=== PATIENT | male | born 1960 | race Two or more races ===

== ENCOUNTER 2024-03-22 13:50 | Emergency (ER) | payer BC, SELFPAY ==
[2024-03-22 13:57] VITALS: BP 151/81; PULSE 122; RESP 20; TEMP 38.4; O2SAT 98; BMI 31.4
--- NOTE | 2024-03-22 14:00 | PC.NURSE ---
sepsis alert called
--- NOTE | 2024-03-22 14:03 | XR_ITS ---
Examination: PA lateral chest 2 views TECHNIQUE: Upright PA lateral chest 2 views Exam date and time: March 22, 2024 at 1415 hours INDICATIONS: Onset chest pain today. FINDINGS: Normal heart size No pneumonia or pulmonary edema. Mild osteopenia IMPRESSION: No pneumonia or pulmonary edema
--- NOTE | 2024-03-22 14:03 | PD.EDRME ---
Rapid Medical Screening Exam RME Arrival date/time: 03/22/24 13:50 63-year-old male presents emergency department complaints of right knee swelling and fever Chief Complaint: Extremity Injury, Lower Time Seen by Provider: 03/22/24 13:56 Vital signs: Vital Signs Temperature 101.2 F H 03/22/24 13:57 Pulse Rate 122 H 03/22/24 13:57 Respiratory Rate 20 03/22/24 13:57 Blood Pressure 151/81 H 03/22/24 13:57 Pulse Oximetry (%) 98 03/22/24 13:57 Oxygen Delivery Method Room Air 03/22/24 13:57
--- NOTE | 2024-03-22 14:04 | XR_ITS ---
Examination: Duplex scan of the lower extremity, unilateral right Date and time of exam: March 22, 2024 1432 hours INDICATIONS: Right knee pain beginning 2 days ago Technique: Duplex scan of the extremity veins using B-mode/grayscale imaging and Doppler spectral analysis and color flow Attention is directed to internal echogenicity, compression and augmentation involving these veins, color flow assessment, spectral analysis Findings: Major deep venous structures in the extremity demonstrate normal course and caliber. There is no evidence of deep vein thrombosis. Normal color flow and spectral analysis Impression: Negative for DVT..
--- NOTE | 2024-03-22 14:04 | XR_ITS ---
Examination: Knee, right , 3 views Technique: Knee AP, lateral, oblique 3 views Date and time of exam: March 22, 2024 1409 hours INDICATIONS: Right knee pain and swelling today FINDINGS: Mild to moderate tricompartment osteoarthritis Meniscus calcification No fracture Moderate knee effusion IMPRESSION: Mild to moderate tricompartment osteoarthritis No fracture Moderate knee effusion
[2024-03-22 14:28] VITALS: TEMP 38.4
[2024-03-22] MEDS: ACETAMINOPHEN 500 MG TABLET 1000 MG PO (14:28)
[2024-03-22 15:52] LABS: Lactate (Lactic Acid) 1.3 mMol/L (0.4-2.0)
[2024-03-22 16:11] LABS: Basophils % (Auto) 0 % (0-2.5); Eosinophils % (Auto) 0 % (0-10); Hematocrit 46.1 % (41.0-53.0); Hemoglobin 15.6 g/dL (13.5-16.0); Immature Granulocytes % (Auto) 0 % (0-0); Immature Granulocytes Auto 0.03 Thou/mm3 (0.00-0.00); Lymphocytes % (Auto) 16 % (10-50); Mean Corpuscular HGB Conc 33.8 g/dl (31.0-37.0); Mean Corpuscular Hemoglobin 30.5 pg (25.0-35.0); Mean Corpuscular Volume 90 fL (80-100); Monocytes # (Auto) 1.2 Thou/mm3 (0.0-0.8); Monocytes % (Auto) 9 % (0-12); Neutrophils # (Auto) 9.8 Thou/mm3 (1.8-7.7); Neutrophils % (Auto) 75 % (37-80); Nucleated Red Blood Cell % 0 /100 WBC (0); Platelet Count 92 Thou/mm3 (140-440); RDW Standard Deviation 45.5 fL (35.1-43.9); Red Blood Count 5.11 Miln/mm3 (4.50-5.90)
[2024-03-22 16:23] LABS: Alanine Aminotransferase 27 U/L (10-49); Albumin, Serum 4.5 gm/dL (3.4-4.8); Albumin/Globulin Ratio 1.4 (1.2-2.2); Alkaline Phosphatase 86 U/L (46-116); Anion Gap 8 (7-16); Aspartate Amino Transferase 22 U/L (0-34); BUN/Creatinine Ratio 9 Ratio (12-20); Bilirubin,Total 2.6 mg/dL (0.3-1.2); Blood Urea Nitrogen 9 mg/dL (9-23); C-Reactive Protein 11.8 mg/dL (0.0-0.9); Calcium 9.5 mg/dL (8.3-10.6); Calcium (Corrected) 9.5 mg/dL (8.5-10.1); Carbon Dioxide 24.4 mMol/L (20.0-31.0); Chloride 101 mMol/L (98-107); Estimated Creatinine Clearance 77.8 mL/min (>60); Globulin 3.2 gm/dL (2.3-3.5); Glucose 157 mg/dL (74-106); Osmolality,Calculated 268 (275-295); Potassium 3.6 mMol/L (3.4-5.1); Sodium 133 mMol/L (136-145); Total Protein 7.7 gm/dL (5.7-8.2); Uric Acid 5.6 mg/dL (3.7-9.2); eGFR > 60 See Note
[2024-03-22 16:55] LABS: Sed Rate (ESR) 52 mm/hr (0-20)
[2024-03-22 18:05] LABS: Collection Type, Urine Clean Catch
[2024-03-22 18:11] LABS: Bacteria,Urine Rare; Bilirubin,Urine Negative (Negative); Blood,Urine Trace (Negative); Clarity,Urine Clear (Clear/Hazy); Color,Urine Yellow (Lt Yel-Yel); Glucose, Urine Negative (Negative); Ketones,Urine Negative (Negative); Leukocyte Esterase,Urine Negative (Negative); Nitrite,Urine Negative (Negative); Protein,Urine 1+ (Neg - Trace); RBC,Urine 3 /hpf (0-3); Specific Gravity,Urine 1.026 (1.001-1.035); Squamous Epithelial Cell,Urine < 1 /hpf (0-5); Urobilinogen,Urine Negative mg/dL (0.0-1.0); WBC,Urine 3 /hpf (0-5)
[2024-03-22 18:15] VITALS: BP 153/63; PULSE 83; RESP 18; TEMP 36.9; O2SAT 99
[2024-03-22 19:48] VITALS: TEMP 37.1
[2024-03-22 19:51] VITALS: BP 115/81; PULSE 92; RESP 16; TEMP 37.1; O2SAT 95
--- NOTE | 2024-03-22 20:30 | PD.EDLOWEX ---
Lower Extremity Injury RME/HPI General Chief Complaint: Extremity Injury, Lower Stated Complaint: RIGHT KNEE PAIN AND SWELLING Time Seen by Provider: 03/22/24 13:56 Source: patient Arrival date/time: 03/22/24 13:50 Mode of arrival: ambulatory Limitations: no limitations RME / HPI RME / HPI Narrative: 03/22/24 13:50 63-year-old male presents emergency department complaints of right knee swelling and fever Dr. [facility] Main ED Evaluation: 63-year-old male who presents to the emergency department for complaints of right knee pain ongoing off and on about 1.5 months, worsening for the past 2 days. Patient notes he is unable to sleep due to the pain. The pain significantly worsened therefore he decided to come here to be further evaluated. He notes subjective fever and chills. He denies sweating, nausea, vomiting, diarrhea, cough, shortness of breath, chest pain, abdominal pain, UTI symptoms, headache, dizziness or any other medical complaints or associated symptoms. Patient reports similar symptoms about 1 year ago and also 2 months ago however it was not associated with pain and it resolved on its own therefore he did not seek medical attention. He also reports similar symptoms to the left elbow approximately 2 years ago. Past medical history: HTN NIDDM2 Hypercholesterolemia Gout Social history: Nonsmoker Social alcohol use No history of substance use PCP: [facility] Related Data Previous Rx's ?Medication ?Instructions ?Recorded acetaminophen 500 mg capsule 1,000 mg (2 x 500 mg) PO Q6H PRN 03/23/24 fever or pain #30 caps allopurinol 300 mg tablet 300 mg PO QDAY #90 tabs 03/23/24 amoxicillin 875 mg-potassium 1 tab PO BID #14 tabs 03/23/24 clavulanate 125 mg tablet ibuprofen 800 mg tablet 800 mg PO TID PRN pain #30 tabs 03/23/24 Allergies Allergy/AdvReac Type Severity Reaction Status Date / Time No Known Allergies Allergy Verified 03/22/24 13:54 Review of Systems Review of Systems Systems Reviewed: All systems reviewed, normal except as documented Past Medical History Past Medical History CARDIAC: Positive Hypercholesterolemia and Hypertension; Negative Congestive Heart Failure RESPIRATORY: Negative Chronic Obstructive Pulmonary Disease (COPD) GENITOURINARY: Negative Renal Disease ENDOCRINE: Positive Diabetes Mellitus Type 2; Negative Diabetes Mellitus Type 1 OTHER HISTORY: Negative Cancer Surgical History SURGICAL: Positive of Back Surgery Social History SMOKING STATUS: Never smoker ED Exam Narrative Physical exam: GENERAL: Patient is alert awake oriented x3 under no distress, laying down comfortably at 30-45?; does not look ill/ toxic. Patient has good eye contact. Patient is cooperative. VITALS: All vitals were reviewed and the pulse ox is 95% on room air, which is normal according to my interpretation. HEENT: Normocephalic, atraumatic and nontender. Pupils are equal and reactive to light and accommodation. Oral mucosa are moist. NECK: Supple, nontender, no meningismus, no JVD. CHEST: Nontender on palpation, no deformity and no crepitus. CARDIOVASCULAR: Heart regular rhythm no murmur or gallop rub or extra beats; not tachycardic. LUNGS: Clear to auscultation bilaterally with symmetrical chest rise. No laboring tachypnea or wheezing. No intercostal subcostal retraction. No rales and no rhonchi. ABDOMEN: Soft, flat, nontender at all, no guarding or rebound tenderness. There are no abnormal masses palpated. No pulsatile masses or bruits. Active and normal bowel sounds. GENITALIA: Not examined. RECTAL EXAM: Not done. EXTREMITIES: The right knee is moderately swollen with fluid. It is tender only on the lateral aspect of the knee. There is some redness and warmness in the medial aspect of the right knee but the entire knee is not particularly hot nor tender. He can bend the knee only to 15 degrees. There is no lacerations or abrasions. NV is intact. There is no calf tenderness on palpation. There is no point tenderness in his right groin. SKIN: Warm and dry, no rashes noted. MUSCULOSKELETAL: No lumbar or midline bony tenderness. There is no CVA tenderness. No paraspinal muscle spasm or tenderness. NEURO: Cranial nerves II through XII grossly intact. There is no focalization. GCS is 15. PSYCHIATRIC: Patient is in normal mood and affect, cooperative. General Limitations: Present no limitations Course Course Course Narrative: 1400 Sepsis alert initiated while checking in. Orders made at this time are congruent with ED Adult Sepsis Order List. Patient had serial re-evaluations pending evaluation by main ED provider. 2033 Sepsis reassessment performed consisting of lab review, vitals, physical exam including auscultation of heart, lungs, and visual evaluation of capillary refills, mucosal membranes and extremities. CXR was ordered by Irving Castle NP during RME for determining etiology of cough. Quality Measures Current suspected stage: sepsis Possible source: unknown Blood cultures ordered: completed in ED Antibiotic ordered: No Pertinent labs: 03/22/24 15:25 Lactic Acid 1.3 mMol/L (0.4-2.0) Procalcitonin 0.10 ng/ml (0.0-0.49) sepsis Orders Category Date Time Status Bedside COVID-19 Antigen Test NOW Care 03/22/24 14:03 Active Bedside Influenza A&B Antigen Test NOW Care 03/22/24 14:03 Completed US guide needle placement Stat Exams 03/22/24 23:19 Completed US venous doppler LE RT Stat Exams 03/22/24 14:04 Completed XR chest 2V Stat Exams 03/22/24 14:03 Completed XR knee RT 3V Stat Exams 03/22/24 14:04 Completed Blood Culture (Lab) Stat Lab 03/22/24 15:25 Received Body Fld Culture & Gram Stain Routine Lab 03/22/24 23:13 Results CBC Stat Lab 03/22/24 15:25 Completed CRP [C-Reactive Protein] Stat Lab 03/22/24 15:25 Completed Comprehensive Metabolic Panel Stat Lab 03/22/24 15:25 Completed ESR [Sed Rate (ESR)] Stat Lab 03/22/24 15:25 Completed Lactate (Lactic Acid) Stat Lab 03/22/24 15:25 Completed Procalcitonin Stat Lab 03/22/24 15:25 Completed Synovial Fluid, Cell Cnt/Diff Routine Lab 03/22/24 23:13 Completed Uric Acid Stat Lab 03/22/24 15:25 Completed Urinalysis Stat Lab 03/22/24 17:05 Completed Urine Culture Stat Lab 03/22/24 17:37 Received Acetaminophen Tab [Tylenol ES Tab] Med 03/22/24 14:04 Discontinued 1,000 mg PO X1 ONE Ampicillin/Sulbac Inj [Unasyn Inj] 3 gm Med 03/22/24 21:18 Discontinued Sodium Chloride 0.9% (P) [NS 0.9% mini bag] 100 ml IV X1 Lidocaine 1% 20 ml [Xylocaine 1% 20 ML] Med 03/22/24 21:27 Discontinued 10 ml INFL X1 ONE Lidocaine 1% 20 ml [Xylocaine 1% 20 ML] Med 03/22/24 21:25 Discontinued 20 ml .ROUTE .STK-MED ONE Vital Signs Vital signs: Vital Signs Temperature 101.2 F H 03/22/24 13:57 Pulse Rate 122 H 03/22/24 13:57 Respiratory Rate 20 03/22/24 13:57 Blood Pressure 151/81 H 03/22/24 13:57 Pulse Oximetry (%) 98 03/22/24 13:57 Oxygen Delivery Method Room Air 03/22/24 13:57 Procedures -ED Joint Aspiration/Injection Joint Asp./Inject. 1: Time Out Performed: No Side of body: right Joint Aspirated: knee Ultrasound Guidance: Yes Skin Prep: Povidone-Iodine1% Local Anesthetic: lidocaine 1% Amount of anesthesia used (mL): 2 Needle Size Used: 18G Fluid Obtained: clear Total fluid obtained (mL): 2 Patient Tolerated Procedure: well and no complications Additional Comments: Fluid aspirated under strict sterile conditions. Extremity Injury, Lower MDM Narrative MDM Narrative:: Scribe Attestation: I, Colleen Cohen, am scribing for and in the presence of Dr. Manning. Patient comes in with right knee pain worse for the last 2 days. He states that the right knee started hurting him about a month and a half ago and it got particularly worse in the last 2 days where he is unable to sleep at night. He has been limping but no fall no injuries. He says that he had a fever but he never checked his temperature at home. Here, he came in with 101.2 temperature; therefore sepsis protocol was called. Patient states that he has known history of gout and he takes allopurinol only whenever he has pain otherwise he does not take it. He denies any other complaints of chest pain abdominal pain back pain headache, nausea vomiting or diarrhea, cold cough congestion or UTI symptoms. He says that this is the third time that this particular right knee joint is inflamed, the first 2 times were 1 year ago and 2 months ago when he did not go to the doctor because the pain went away on its own. He also has had right MTP joint swelling and pain in the past. Also he has had swelling of his left elbow. Today, his white count is 13.0 with no left shift. His sed rate is elevated at 52 and his CRP is elevated at 11 but his uric acid is normal at 5.6 and his lactic acid and procalcitonin are negative. Patient does have history of [id number] diabetes, BPH and hypertension as well. We did an ultrasound of his leg and there is no DVT. His chest x-ray is negative but his right knee x-ray shows moderate amount of fluid according to the radiologist reading. I discussed this case with Dr. Alvarez, our orthopedic doctor on-call, at 8:55 PM and he said to go ahead and aspirate the fluid; if there is infection, which means cell count more than 50K, patient needs to be admitted so he washes the knee. Just as a precautionary measure, I will give him Unasyn 3 g IV. At 10 PM I tried to aspirate the fluid but nothing would come out. Therefore, I ordered an ultrasound of the knee to jasen down where the fluid is. At 11:10 PM, finally we got 1 and half cc of clear looking fluid from the joint. It does not look like it is pus. Now we will send that to the lab and wait for the results. Patient tolerated the procedure well. 3 AM, patient's synovial fluid shows only 5200 WBCs which is compatible with a gouty attack rather than an infectious process. Regardless, as I said before, I will put him on antibiotic for 7 days. I will also give him Zyloprim 300 mg daily. Provider Notation: Although this document has been carefully reviewed, there may still be some phonetic and other typographical errors. These errors are purely grammatical due to imperfections in the software program and should not be construed in any way to compromise the substance of the patient's medical care during this visit. Patient data External records reviewed:: [facility] previous records Clinical information provided by:: patient Social determinants that could affect healthcare access:: alcohol use Patient has the following chronic illnesses:: Past medical history: Hypertension Diabetes Mellitus 2 Hypercholesterolemia Gout How is presenting disease/condition affected by chronic disease/condition?: uneffected by Evaluation data The following diagnostics were reviewed and interpreted by me:: lab results and radiology exam(s) Lab and/or radiology exams considered but not ordered:: None Interpretation Summary: I personally reviewed CXR, RT KNEE XR and RLE US on this patient. Films were reviewed. I agree with the radiologist's interpretation. Examination: PA lateral chest 2 views TECHNIQUE: Upright PA lateral chest 2 views Exam date and time: March 22, 2024 at 1415 hours INDICATIONS: Onset chest pain today. FINDINGS: Normal heart size No pneumonia or pulmonary edema. Mild osteopenia IMPRESSION: No pneumonia or pulmonary edema Dictated By: Jose Portillo MD Examination: Knee, right , 3 views Technique: Knee AP, lateral, oblique 3 views Date and time of exam: March 22, 2024 1409 hours INDICATIONS: Right knee pain and swelling today FINDINGS: Mild to moderate tricompartment osteoarthritis Meniscus calcification No fracture Moderate knee effusion IMPRESSION: Mild to moderate tricompartment osteoarthritis No fracture Moderate knee effusion Dictated By: Jose Portillo MD Examination: Duplex scan of the lower extremity, unilateral right Date and time of exam: March 22, 2024 1432 hours INDICATIONS: Right knee pain beginning 2 days ago Technique: Duplex scan of the extremity veins using B-mode/grayscale imaging and Doppler spectral analysis and color flow Attention is directed to internal echogenicity, compression and augmentation involving these veins, color flow assessment, spectral analysis Findings: Major deep venous structures in the extremity demonstrate normal course and caliber. There is no evidence of deep vein thrombosis. Normal color flow and spectral analysis Impression: Negative for DVT.. Dictated By: Jose Portillo MD Medications / Prescriptions Medications or Prescriptions considered but not ordered:: None Medication administrations:: Medication Administration History Discontinued Medications Acetaminophen (Acetaminophen 500 Mg Tablet) 1,000 mg PO X1 ONE Stop: 03/22/24 14:05 Last Admin: 03/22/24 14:28 Dose: 1,000 mg Documented By: MARKIE Ampicillin Sodium/Sulbactam (Sodium 3 gm/ Sodium Chloride) 100 mls @ 200 mls/hr IV X1 ONE Stop: 03/22/24 21:19 Last Infusion: 03/22/24 23:33 Dose: Infused Documented By: Admin: 03/22/24 22:22 Dose: 200 mls/hr Documented By: CHRISTINA Lidocaine HCl (Lidocaine Hcl 1% 20 Ml Vial) 10 ml INFL X1 ONE Stop: 03/22/24 21:28 Last Admin: 03/22/24 22:21 Dose: 10 ml Documented By: CHRISTINA Lidocaine HCl (Lidocaine Hcl 1% 20 Ml Vial) Confirm Administered Dose 20 ml .ROUTE .STK-MED ONE Stop: 03/22/24 21:26 Last Admin: 03/22/24 22:19 Dose: Not Given Documented By: CHRISTINA Non-Admin Reason: Duplicate Medication on eMAR As above, if any Consultations Consultation(s) initiated? (list below): Yes Consultation #1 (Physician, Specialty, Details): See narrative Diagnosis Extremity Injury, Lower Differential Diagnosis: other (Septic arthritis, Osteoarthritis, Gouty attack) Most likely diagnosis given after review of the tests above:: see below Admission Indicated Admission indicated?: not indicated Admission Request Was there a request for admission?: No Disposition Plan Disposition Plan: Discharge Discharge Attestation Discharge Attestation: The patient and all family members were given an opportunity to ask questions and understood the discharge instructions. Discharge instructions specifically effects, indications for sooner follow up or return to the emergency department, and the expected course of current diagnosis. Patient condition: Stable Critical Care Time Critical Care Time Critical Care Time: Yes Total Critical Care Time (min.): 35 Attestation: The high probability of sudden, clinically significant deterioration in the patient?s condition required the highest level of my preparedness to intervene urgently. The services I provided to this patient were to treat and/or prevent clinically significant deterioration. Services included the following: chart data review, reviewing nursing notes and/or old charts, documentation time, environmental remediation consultant collaboration regarding findings and treatment options, medication orders and management, direct patient care, vital sign assessments and ordering, interpreting and reviewing diagnostic studies and lab tests. Aggregate critical care time includes only time during which I was engaged in work directly related to the patient?s care, as described above, whether at bedside or elsewhere in the Emergency Department. It did not include time spent performing other reported procedures or the services of residents, students, nurses or physician assistants. Discharge Plan Plan Patient Disposition: HOME (Self Care) Prescriptions/Referrals Prescriptions/Med Rec: New allopurinol 300 mg tablet 300 mg PO QDAY Qty: 90 0RF amoxicillin-pot clavulanate 875-125 mg tablet 1 tab PO BID Qty: 14 0RF ibuprofen 800 mg tablet 800 mg PO TID PRN (Reason: pain) Qty: 30 0RF acetaminophen 500 mg capsule 1,000 mg PO Q6H PRN (Reason: fever or pain) Qty: 30 0RF Referrals: [facility] [Outside] - 03/25/24 10:00 am Problem List Clinical Impression: Acute pain of right knee, Gouty arthritis Patient/Caregiver Discharge Instructions Education Materials: ED Gout Diet Additional Instructions: Bedrest for the next 2 days with elevation of your right knee and 1 or 2 pillows and a heating pad on the top of the knee. Take medications as prescribed. Remember that from now on you have to take allopurinol 300 mg once a day every day of your life, and not only when there is recurrence of gout. Follow-up with your doctor in 2 days for recheck. Tell your doctor that this is gouty arthritis and not septic arthritis. Print Language: Greek Stand Alone Forms: Dana Award Info., Patient Portal Info Letter
[2024-03-22] MEDS: LIDOCAINE HCL 1% 20 ML VIAL 10 ML INFL (22:21)
[2024-03-22] MEDS: AMPICILLIN/SULBAC INJ 3 GM in SODIUM CHLORIDE 0.9% (P) 100 ML IV (22:22)
--- NOTE | 2024-03-22 23:19 | XR_ITS ---
Examination: Ultrasound soft tissue knee Exam date and time: 03/22/2024 1048 hrs. Indications: Soft tissue swelling anterior knee taking the Technique and findings: Multiple high-resolution grayscale sonographic images obtained for ultrasound guidance for fluid aspiration Impression:: Multiple high-resolution sonographic images soft tissue knee obtained for fluid aspiration
[2024-03-22 23:33] VITALS: BP 127/80; PULSE 94; RESP 19; TEMP 37.1; O2SAT 96
[2024-03-23 00:26] LABS: Synovial Fluid Mononuclear 4.2 %; Synovial Fluid Polynuclear 95.8 %; Synovial Fluid WBC 5233 /cmm
[2024-03-23 00:28] LABS: Synovial Fluid Color Red
[2024-03-23 00:29] LABS: Synovial Fluid Appearance Bloody
[2024-03-23 00:30] LABS: Synovial Fluid Diff Comment Comment Below
[2024-03-23 00:31] LABS: Source,Synovial Fluid Knee
[2024-03-23 03:26] VITALS: BP 139/85; PULSE 82; RESP 17; TEMP 37.1; O2SAT 97
[2024-03-23 03:32] VITALS: BP 139/85; PULSE 84; RESP 18; TEMP 36.8; O2SAT 99
== END 2024-03-23 03:32 | disposition home or self-care (01) ==
PROVIDERS: Nurse Practitioner Primary Care; Emergency Provider Emergency Medicine
DX: M17.11 Unilateral primary osteoarthritis, right knee (principal); M10.9 Gout, unspecified; R07.9 Chest pain, unspecified; R05.9 Cough, unspecified
CPT/HCPCS: 20611; 36415; 71046; 73562; 76998; 80053; 81001; 83605; 84145; 84550; 85025; 85652; 86140; 87040; 87070; 87086; 87205; 87400; 87811; 89051; 93971; 96365; 99291; J0295; J3490; A9270